=== PATIENT | male | born 1945 | race Hispanic/Latino ===

== ENCOUNTER → 2018-12-14 | Outpatient (CLI) | payer MEDICARE ==
[~2018-12-14] MED LIST: ALBUTEROL SULFATE 0.083% 2.5 MG/3 ML INH IH ONE; ASPI-1197 PO; ATOR40TA71 PO; NAPR-1180 PO
== END | disposition home or self-care (01) ==
LOC: RESP 12:42
PROVIDERS: ATTEND Internal Medicine Hematology & Oncology
DX: C34.90 Malignant neoplasm of unspecified part of unspecified bronchus or lung (principal)
CPT/HCPCS: 94060; 94727; 94729

== ENCOUNTER 2021-02-05 17:49 | Observation (INO) | payer MEDICARE ==
[~2021-02-05] VITALS: Ht 160 cm; Wt 47.2 kg
[~2021-02-05 17:49] MED LIST changes: -ALBUTEROL SULFATE 0.083% 2.5 MG/3 ML INH IH ONE
[2021-02-05 18:33] VITALS: BP 102/70
[2021-02-05] MEDS: NACL 0.9% 1000ML 1,000 ML IV SCH (20:03)
[2021-02-05] MEDS: SOLU-MEDROL 125MG VIAL IVP SCH (20:19)
[2021-02-05] MEDS: IPRATROPIUM/ALBUTEROL SULFATE 3 ML SOLUTION IH SCH (22:32)
[2021-02-05 22:33] VITALS: BP 117/60
[2021-02-06 01:07] VITALS: BP 120/73
[2021-02-06] MEDS: SOLU-MEDROL 125MG VIAL IVP SCH ×2 (02:00→09:52)
[2021-02-06] MEDS: IPRATROPIUM/ALBUTEROL SULFATE 3 ML SOLUTION IH SCH ×4 (02:11→14:04)
[2021-02-06 03:30] VITALS: BP 114/69
[2021-02-06] MEDS ORDERED: IOHEXOL-350 50ML VIAL IV ONE (04:41)
[2021-02-06 04:45] LABS: BASOPHILS % (AUTO) 0.3 % (0.0-5.0); EOSINOPHILS % (AUTO) 0.3 % (0.0-8.0); HEMATOCRIT 27.4 % (42-54); LYMPHOCYTES % (AUTO) 9.4 % (21.0-51.0); MEAN CORPUSCULAR HEMOGLOBIN 30.3 pg (27.0-33.0); MEAN CORPUSCULAR HGB CONC 31.8 g/dL (32.0-36.0); MEAN CORPUSCULAR VOLUME 95.5 fL (79-99); MONOCYTES % (AUTO) 0.5 % (3.0-13.0); PLATELET COUNT (AUTO) 95 K/uL (130-400); RED BLOOD CELL COUNT(AUTO) 2.87 MIL/uL (4.50-6.20); WHITE BLOOD COUNT (AUTO) 6.3 K/uL (4.8-10.8)
[2021-02-06 04:55] LABS: CREATININE 1.3 mg/dL (0.5-1.5); POTASSIUM 3.6 mmol/L (3.5-5.1)
[2021-02-06 05:00] LABS: ALBUMIN 2.7 g/dL (3.5-5.0); BILIRUBIN,TOTAL 0.2 mg/dL (0.2-1.0); TOTAL PROTEIN, SERUM 7.9 g/dL (6.0-8.3)
[2021-02-06 06:20] VITALS: BP 109/71
[2021-02-06] MEDS ORDERED: NACL 0.9% 1000ML 1,000 ML IV ONE (09:47)
[2021-02-06] MEDS: NACL 0.9% 1000ML 1,000 ML IV SCH (09:54)
[2021-02-06 10:02] VITALS: BP 113/72
[2021-02-06 13:01] LABS: HEMATOCRIT 26.7 % (42-54); MEAN CORPUSCULAR HEMOGLOBIN 29.3 pg (27.0-33.0); MEAN CORPUSCULAR HGB CONC 31.1 g/dL (32.0-36.0); MEAN CORPUSCULAR VOLUME 94.3 fL (79-99); PLATELET COUNT (AUTO) 91 K/uL (130-400); RED BLOOD CELL COUNT(AUTO) 2.83 MIL/uL (4.50-6.20); RED CELL DISTRIBUTION WIDTH 14.1 % (11.0-15.5); WHITE BLOOD COUNT (AUTO) 5.7 K/uL (4.8-10.8)
[2021-02-06 13:35] LABS: LYMPHOCYTES % (MANUAL) 16 % (22-44); MAN.DIFF COMMENT-IMPRESSION MANUAL DIFFERENTIAL; PLATELET MORPHOLOGY COMMENT DECREASED; SEGMENTED NEUTROPHILS % 84 % (40-70)
== END 2021-02-06 18:59 | disposition home or self-care (01) ==
LOC: EDH 17:49 → EDHIP 17:50
PROVIDERS: ADMIT Internal Medicine Hematology & Oncology; ATTEND Internal Medicine Hematology & Oncology
DX: R62.7 Adult failure to thrive (principal); R53.1 Weakness; D64.9 Anemia, unspecified; J91.0 Malignant pleural effusion; C34.90 Malignant neoplasm of unspecified part of unspecified bronchus or lung; J44.9 Chronic obstructive pulmonary disease, unspecified; I25.10 Atherosclerotic heart disease of native coronary artery without angina pectoris; E78.5 Hyperlipidemia, unspecified; G62.9 Polyneuropathy, unspecified; I73.9 Peripheral vascular disease, unspecified; Z87.891 Personal history of nicotine dependence; Z92.21 Personal history of antineoplastic chemotherapy; Z92.3 Personal history of irradiation; Z79.899 Other long term (current) drug therapy
CPT/HCPCS: 36415; 71270; 80053; 85025 ×2; 86850; 86900; 86901; 94640 ×5; 94664; 94760 ×2; 96361 ×2; 96374; 96376; 99285; G0378 ×24; J2930 ×3; J7030 ×2; Q9967

== ENCOUNTER 2021-03-15 20:32 | Emergency (ER) | payer MEDICARE ==
[~2021-03-15] VITALS: Ht 154.9 cm; Wt 48.1 kg
== END 2021-03-15 22:46 | disposition left against medical advice (07) ==
LOC: EDH 20:32
DX: R07.89 Other chest pain (principal); Z53.21 Procedure and treatment not carried out due to patient leaving prior to being seen by health care provider

== ENCOUNTER 2021-03-24 15:04 | Observation (INO) | payer MEDICARE ==
[~2021-03-24] VITALS: Ht 157.5 cm; Wt 47.6 kg
[2021-03-24 15:44] VITALS: BP 90/57
[2021-03-24 15:47] LABS: EOSINOPHILS % (AUTO) 0.1 % (0.0-8.0); HEMATOCRIT 25.7 % (42-54); LYMPHOCYTES % (AUTO) 10.2 % (21.0-51.0); MEAN CORPUSCULAR HEMOGLOBIN 29.2 pg (27.0-33.0); MEAN CORPUSCULAR HGB CONC 33.1 g/dL (32.0-36.0); MEAN CORPUSCULAR VOLUME 88.3 fL (79-99); MONOCYTES % (AUTO) 3.3 % (3.0-13.0); NEUTROPHILS % (AUTO) 85.4 % (40.0-77.0); NUCLEATED RED BLOOD CELLS 0.8 % (0.0-0.19); PLATELET COUNT (AUTO) 77 K/uL (130-400); RED BLOOD CELL COUNT(AUTO) 2.91 MIL/uL (4.50-6.20); WHITE BLOOD COUNT (AUTO) 8.4 K/uL (4.8-10.8)
[2021-03-24 15:56] LABS: CREATININE 1.5 mg/dL (0.5-1.5)
[2021-03-24 16:02] LABS: ALBUMIN 3.2 g/dL (3.5-5.0); BILIRUBIN,TOTAL 0.3 mg/dL (0.2-1.0); TOTAL PROTEIN, SERUM 7.2 g/dL (6.0-8.3)
[2021-03-24 16:15] LABS: B-TYPE NATRIURETIC PEPTIDE 148 pg/mL (0-100)
[2021-03-24 17:53] LABS: APPEARANCE,URINE Clear (CLEAR); BILIRUBIN,URINE Negative (NEGATIVE); COLOR,URINE Yellow (YELLOW); GLUCOSE, URINE (UA) Negative (NEGATIVE); KETONES,URINE Negative (NEGATIVE); LEUKOCYTE ESTERASE ,URINE Negative (NEGATIVE); NITRATE,URINE Negative (NEGATIVE); OCCULT BLOOD,URINE Negative (NEGATIVE); PH,URINE 5.5 (5.0-8.0); PROTEIN,URINE Negative (NEGATIVE); UROBILINOGEN,URINE 0.2 mg/dL (0.2-1.0)
[2021-03-24 19:46] VITALS: BP 95/50
[2021-03-24] MEDS ORDERED: IPRATROPIUM/ALBUTEROL SULFATE 3 ML SOLUTION IH ONE (20:12)
[2021-03-24] MEDS: SOLU-MEDROL 125MG VIAL IVP SCH (21:32)
[2021-03-25] VITALS: BP 83/42
[2021-03-25] MEDS ORDERED: IPRATROPIUM/ALBUTEROL SULFATE 3 ML SOLUTION IH SCH
[2021-03-25] MEDS: SOLU-MEDROL 125MG VIAL IVP SCH ×3 (01:48→14:30)
[2021-03-25 06:27] VITALS: BP 117/73
[2021-03-25 08:56] LABS: INR 1.16 (0.85-1.15); PROTHROMBIN TIME 12.5 SEC (9.6-11.6)
[2021-03-25 08:57] LABS: PARTIAL THROMBOPLASTIN TIME 30.6 SEC (26.3-35.5)
[2021-03-25 09:05] VITALS: BP 114/68
[2021-03-25 11:30] VITALS: BP 129/59
== END 2021-03-25 18:40 | disposition home or self-care (01) ==
LOC: EDH 16:17 → EDHIP 16:55 → 3AH 03-25 11:58
PROVIDERS: ADMIT Internal Medicine Hematology & Oncology; ATTEND Internal Medicine Hematology & Oncology
DX: C34.11 Malignant neoplasm of upper lobe, right bronchus or lung (principal); Z20.822 Contact with and (suspected) exposure to COVID-19; J90 Pleural effusion, not elsewhere classified; I25.10 Atherosclerotic heart disease of native coronary artery without angina pectoris; G62.9 Polyneuropathy, unspecified; E78.5 Hyperlipidemia, unspecified; J44.9 Chronic obstructive pulmonary disease, unspecified; J84.10 Pulmonary fibrosis, unspecified; I73.9 Peripheral vascular disease, unspecified; K75.3 Granulomatous hepatitis, not elsewhere classified; D64.9 Anemia, unspecified; R62.7 Adult failure to thrive; F17.210 Nicotine dependence, cigarettes, uncomplicated; Z79.899 Other long term (current) drug therapy; Z98.890 Other specified postprocedural states; Z68.1 Body mass index [BMI] 19.9 or less, adult; Z79.82 Long term (current) use of aspirin
CPT/HCPCS: 32555; 36415 ×2; 71045 ×2; 80053; 81003; 83880; 84484; 85025; 85610; 85730; 87635; 87804 ×2; 93005; 94640 ×3; 94664; 96374; 96376; 99285; C1729; C9803; G0378 ×25; J2930 ×4